=== PATIENT | female | born 1955 | race Hispanic/Latino ===

== ENCOUNTER → 2024-07-13 | Outpatient (CLI) | payer OTHER, MEDICARE | END | disposition home or self-care (01) | LOC: RAH 13:06 | PROVIDERS: ATTEND Student in an Organized Health Care Education/Training Program | DX: N28.1 Cyst of kidney, acquired (principal); N32.89 Other specified disorders of bladder; M47.815 Spondylosis without myelopathy or radiculopathy, thoracolumbar region; I70.90 Unspecified atherosclerosis; R10.9 Unspecified abdominal pain | CPT/HCPCS: 74176 ==

== ENCOUNTER 2024-11-08 12:43 | Emergency (ER) | payer OTHER, MEDICARE ==
[~2024-11-08] VITALS: Ht 157.5 cm; Wt 82.1 kg
--- NOTE | 2024-11-08 14:03 | HMCIMG ---
CHEST 1VW REASON: cp COMPARISON: None. FINDINGS: Single view of the chest was obtained. Lungs are clear. Heart size is normal. There is no pulmonary vascular congestion. Mediastinum and bony thorax appear unremarkable. IMPRESSION: 1. Normal single view chest x-ray.
--- NOTE | 2024-11-08 14:09 | ERN ---
General Chief Complaint: Headache Stated Complaint: HEADACHE Time Seen by MD: 12:45 Source: patient History of Present Illness Initial Comments Patient is a 69-year-old female coming in to be evaluated for headache. Patient states he was seen at another hospital with a diagnosed with elevated blood pressure was given it medication to control blood pressure. She believes she t hought her blood pressure was high so she decided to come in to be evaluated. She describes the headache is pressure-like and present in the maxillofacial area as well as the bilateral trapezius muscles. Allergies: Coded Allergies: levofloxacin (Unverified Allergy, Unknown, 11/08/24) Past Medical History Past Medical History: Anxiety, Depression, Diabetes-Type II, High Cholesterol, Hypertension Past Surgical History: Surgical History Other: X4 FOOT, KNEE, HERNIA REPAIR ROS Dictation CONSTITUTIONAL: No chills, no fever, no weakness, no diaphoresis, no malaise. HEAD/FACE: No signs of trauma. EENT: No eye pain, no blurred vision, no tearing, no double vision, no ear pain, no ear discharge, no nose pain, no nasal congestion, no throat pain, no throat swelling, no mouth pain. RESPIRATORY: No cough, no orthopnea, no SOB, no stridor, no wheezing. CARDIOVASCULAR: No chest pain, no edema, no palpitations, no syncope. GASTROINTESTINAL/ABDOMINAL: No abdominal pain, no constipation, no diarrhea, no nausea, no vomiting. GENITOURINARY: No abnormal discharge, no dysuria, no frequent urination, no hematuria. No complaints of pain in the genitals. MUSCULOSKELETAL: No back pain, no gout, no joint pain, no joint swelling, no muscle pain, no muscle stiffness, no neck pain. INTEGUMENTARY: No change in color, no change in hair/nails, no dryness, no lesion, no lumps, no rash. NEUROLOGICAL/PSYCH: No anxiety, not depressed, no emotional problem, no headache, no numbness, no pre-existing deficit, no history of seizures, no tremors, no weakness. HEMATOLOGIC/LYMPHATIC: Not anemic, no history of blood clots, no apparent bleeding, no bruising, glands not swollen. All Systems Negative, Except as Noted. Physical Exam Physical Exam Dictation VITAL SIGNS: Reviewed. GENERAL APPEARANCE: Alert, oriented x3, no acute distress, obese. HEAD AND FACE: Non-traumatic. EYES: PERRL, pink conjunctivas, eyelid no trauma, anterior chamber clear. EARS: Pinnas intact and no signs of trauma or erythema. Ear canals clear and no discharge. TMs no erythema. NOSE: No discharge, no bleeding. OROPHARYNX: Mouth normal, teeth no caries, tongue pink. Pharynx clear, no erythema. Tonsils no exudates, no abscesses noted. Mucous membrane moist. NECK: Supple, non-tender, no thyromegaly, no masses, no JVD, no bruits. BREAST: Deferred. CHEST: No tenderness, no crepitus, no paradoxical movement, no retractions. LUNGS: Clear, well-ventilated, symmetric, no rales, no wheezing, no rhonchi, no stridor, good breath sounds bilaterally. HEART: Regular rate, regular rhythm, no murmur, no gallops. VASCULAR: No peripheral edema. ABDOMEN: Soft, positive bowel sounds, nondistended, no guarding, nontender, no rebound, no masses no hepatomegaly, no splenomegaly, no Shelby's sign, no hernias. RECTAL: Deferred. GENITAL: Deferred. NEUROLOGICAL: Normal speech, gross motor function intact, gross sensory function intact. MUSCULOSKELETAL: Neck nontender, full range of motion, back nontender, full range of motion. EXTREMITIES: Nontender, full range of motion. SKIN: Color pink, dry, no turgor, no rash, no lacerations, no abrasions, no contusions. LYMPHATICS: Deferred. Results Laboratory and Microbiology Lab and Micro Result Laboratory Tests Test 11/08/24 12:50 11/08/24 13:38 11/08/24 14:05 Influenza Type A Antigen Negative For Type A Influenza Type B Antigen Negative For Type B SARS-CoV-2, RNA, NAAT NEGATIVE SARS CoV-2 Group A Streptococcus Rapid negative (NEGATIVE) White Blood Count 9.2 K/uL (4.8-10.8) Red Blood Count 4.10 MIL/uL (4.00-5.50) Hemoglobin 12.1 g/dL (12.0-16.0) Hematocrit 38.9 % (36-48) Mean Corpuscular Volume 94.9 fL (79-99) Mean Corpuscular Hemoglobin 29.5 pg (27.0-33.0) Mean Corpuscular Hemoglobin Concent 31.1 g/dL (32.0-36.0) L Red Cell Distribution Width 13.5 % (11.0-15.5) Platelet Count 240 K/uL (130-400) Mean Platelet Volume 10.2 fL (7.5-10.5) Immature Granulocyte % (Auto) 0.4 % (0-1) Neutrophils (%) (Auto) 50.7 % (40.0-77.0) Lymphocytes (%) (Auto) 39.1 % (21.0-51.0) Monocytes (%) (Auto) 6.4 % (3.0-13.0) Eosinophils (%) (Auto) 2.7 % (0.0-8.0) Basophils (%) (Auto) 0.7 % (0.0-5.0) Neutrophils # (Auto) 4.6 K/uL (1.8-7.7) Lymphocytes # (Auto) 3.6 K/uL (1.0-4.8) Monocytes # (Auto) 0.6 K/uL (0.1-1.0) Eosinophils # (Auto) 0.25 K/uL (0.00-0.70) Basophils # (Auto) 0.06 K/uL (0.00-0.20) Absolute Immature Granulocyte (auto 0.04 K/uL (0-1) Nucleated Red Blood Cells 0.0 % (0.0-0.19) Prothrombin Time 10.1 SEC (9.6-11.6) Prothromb Time International Ratio <= 0.93 (0.85-1.15) Sodium Level 142 mmol/L (136-145) Potassium Level 4.4 mmol/L (3.5-5.1) Chloride Level 105 mmol/L (101-111) Carbon Dioxide Level 29 mmol/L (21-32) Blood Urea Nitrogen 31 mg/dL (7-18) H Creatinine 1.1 mg/dL (0.5-1.0) H Glomerular Filtration Rate Calc 55 mL/min (>90) Random Glucose 90 mg/dL (70-105) Total Calcium 9.3 mg/dL (8.5-10.1) Magnesium Level 2.00 mg/dL (1.80-2.40) Total Creatine Kinase 52 U/L (21-232) Troponin I High Sensitivity 9 ng/L (4-50) B-Type Natriuretic Peptide 50 pg/mL (0-100) Labs Reviewed?: Yes EKG/XRAY/US/CT/MRI EKG Comment 11/08/2024 time 12:59 p.m. Ventricular rate 55 Sinus rhythm [place] [address] wave elevation or depression MDM MDM: DIFFERENTIAL DIAGNOSIS: TENSION HEADACHE, UTI, COVID, FLU, SINUSITIS PATIENT IS A 69-YEAR-OLD FEMALE COMING IN TO BE EVALUATED FOR A HEADACHE. PATIENT STATES THAT SHE HAS BEEN EVALUATED AT OTHER EMERGENCY ROOMS IN [facility] AND EVERYTHING HAS BEEN NORMAL. ON PHYSICAL EXAM THERE IS A RIGHT TYMPANIC MEMBRANE ERYTHEMA SINUS PRESSURE MAXILLARY AND ETHMOID SINUSES. CONSISTENT WITH SINUSITIS. PATIENT WAS HYDRATED WITH IV FLUIDS GIVEN THE HEADACHE COCKTAIL STATES HE FEELS MUCH BETTER. HE WILL BE DISCHARGED IN STABLE CONDITION WITH ORAL ANTIBIOTICS WELL NASAL STEROIDS. I ADVISED HER APPROPRIATE FOLLOW UP WITH PCP IN 1-2 DAYS AND POSSIBLE NEUROLOGY FOR CHRONIC HEADACHES. ED Course Orders Procedure Category Date Status Time Cbc With Differential LAB 11/08/24 Complete 12:49 Prothrombin Time With LAB 11/08/24 Complete INR 12:49 B-Type Natriuretic LAB 11/08/24 Complete Peptide 12:49 Chest 1vw RAD 11/08/24 Resulted 12:49 12 Lead Ekg Tracing- EKG 11/08/24 Logged Technical 12:49 0.9%Nacl 1000ml (Ns PHA 11/08/24 Complete 1000ml) 13:00 Magnesium LAB 11/08/24 Complete 12:49 Creatine Kinase, Total LAB 11/08/24 Complete 12:49 Troponin I High LAB 11/08/24 Complete Sensitivity 12:49 Urinalysis Profile LAB 11/08/24 Logged 12:49 Basic Metabolic Panel LAB 11/08/24 Complete 12:49 Prochlorperazine PHA 11/08/24 Complete 10mg/2ml Inj 13:00 Diphenhydramine Hcl PHA 11/08/24 Complete (Benadryl Inj) 13:00 Covid Rna Naat LAB 11/08/24 Complete 13:47 Influenza Type A & B, LAB 11/08/24 Complete Rapid 13:47 Rapid (Group A Strep) LAB 11/08/24 Complete 13:56 Current Medications Medications (Trade) Dose Ordered Sig/Yahaira Route PRN Reason Start Time Stop Time Status Last Admin Dose Admin Diphenhydramine HCl (BENAdryl INJ) 25 mg ONCE ONCE IV 11/08/24 13:00 11/08/24 13:01 DC 11/08/24 16:20 Prochlorperazine Edisylate (Compazine 10mg/ 2ml Inj) 10 mg ONCE ONCE IV 11/08/24 13:00 11/08/24 13:01 DC 11/08/24 16:20 Sodium Chloride 1,000 ml @ 0 mls/hr ONCE ONCE IV 11/08/24 13:00 11/08/24 13:01 DC 11/08/24 16:20 Vital Signs Date Time Temp Pulse Resp B/P (MAP) Pulse Ox O2 Delivery O2 Flow Rate FiO2 11/08/24 12:44 98.1 50 16 172/62 98 Room Air* 0 21 11/08/24 12:44 98.1 50 16 172/62 98 0 DX & DISP Disposition: Discharge Departure Impression: Primary Impression: Tension headache Additional Impression: Sinusitis Condition: Stable Additional Instructions: FOLLOW-UP WITH PRIMARY CARE PROVIDER IN 1 TO 2 DAYS. TAKE MEDICATIONS DIRECTED HERE IN THE EMERGENCY ROOM. OKAY TO CONTINUE HOME MEDICATIONS UNLESS OTHERWISE DISCUSSED DURING YOUR VISIT IN THE EMERGENCY ROOM TODAY. RETURN TO YOUR NEAREST EMERGENCY ROOM IF SYMPTOMS WORSEN OR IF THERE IS NO IMPROVEMENT. CALL 911 IF YOU NEED IMMEDIATE ASSISTANCE. TAKE TYLENOL [id number] NEEDED AND IF NO CONTRAINDICATIONS ARE PRESENT. INCREASE ORAL HYDRATION. A WOUND CULTURE OR URINE CULTURE WAS ORDERED HERE IN THE EMERGENCY ROOM DEPARTMENT PLEASE FOLLOW-UP WITH PRIMARY CARE PROVIDER AND ADVISE THEM TO GET REPEAT PORTS FROM OUR FACILITY. IF YOU HAD ANY QUIRINO WRAP/SPLINTS THAT WERE APPLIED HERE, PLEASE DO NOT REMOVE THEM UNTIL YOU SEE YOUR PRIMARY CARE OR SPECIALTY. REFERRALS: Referrals: DEEPAK CASTREJON M.D. (PCP) MARIE OCAMPO MD, FRANK R III MD Time of Disposition: 16:34 KATHIE GLEASON MD Nov 08, 2024 14:09
[2024-11-08 14:11] LABS: SARS-CoV-2, RNA, NAAT NEGATIVE SARS CoV-2 (NEGATIVE)
[2024-11-08 14:14] LABS: BASOPHILS # (AUTO) 0.06 K/uL (0.00-0.20); BASOPHILS % (AUTO) 0.7 % (0.0-5.0); EOSINOPHILS # (AUTO) 0.25 K/uL (0.00-0.70); EOSINOPHILS % (AUTO) 2.7 % (0.0-8.0); HEMATOCRIT 38.9 % (36-48); IMMATURE GRANULOCYTE ABSOLUTE 0.04 K/uL (0-1); LYMPHOCYTES # (AUTO) 3.6 K/uL (1.0-4.8); LYMPHOCYTES % (AUTO) 39.1 % (21.0-51.0); MEAN CORPUSCULAR HEMOGLOBIN 29.5 pg (27.0-33.0); MEAN CORPUSCULAR HGB CONC 31.1 g/dL (32.0-36.0); MEAN CORPUSCULAR VOLUME 94.9 fL (79-99); MONOCYTES # (AUTO) 0.6 K/uL (0.1-1.0); MONOCYTES % (AUTO) 6.4 % (3.0-13.0); NEUTROPHILS # (AUTO) 4.6 K/uL (1.8-7.7); NEUTROPHILS % (AUTO) 50.7 % (40.0-77.0); PLATELET COUNT (AUTO) 240 K/uL (130-400); RED CELL DISTRIBUTION WIDTH 13.5 % (11.0-15.5); WHITE BLOOD COUNT (AUTO) 9.2 K/uL (4.8-10.8)
[2024-11-08 14:16] LABS: INFLUENZA TYPE A Negative For Type A (NEGATIVE); INFLUENZA TYPE B Negative For Type B (NEGATIVE)
[2024-11-08 14:38] LABS: INR <= 0.93 (0.85-1.15); PROTHROMBIN TIME 10.1 SEC (9.6-11.6)
[2024-11-08 14:42] LABS: B-TYPE NATRIURETIC PEPTIDE 50 pg/mL (0-100)
[2024-11-08 14:58] LABS: CREATININE 1.1 mg/dL (0.5-1.0); POTASSIUM 4.4 mmol/L (3.5-5.1)
[2024-11-08] MEDS: DiphenhydrAMINE HCL 50 MG/ML VIAL IV ONE (16:20)
[2024-11-08] MEDS: PROCHLORPERAZINE 10MG/2ML INJ IV ONE (16:20)
[2024-11-08] MEDS: 0.9%NACL 1000ML 1,000 ML IV ONE (16:20)
[2024-11-08] MEDS ORDERED: FLUT16H NS (16:36)
[2024-11-08] MEDS ORDERED: AMOX1TAB16 PO (16:36)
[2024-11-08] MEDS ORDERED: LORA10TA7 PO (16:36)
[2024-11-08 16:50] LABS: ADD UA MICROSCOPIC YES; APPEARANCE,URINE CLEAR (CLEAR); BILIRUBIN,URINE NEGATIVE (NEGATIVE); COLOR,URINE LIGHT-YELLOW (YELLOW); GLUCOSE, URINE (UA) NEGATIVE (NEGATIVE); KETONES,URINE NEGATIVE (NEGATIVE); LEUKOCYTE ESTERASE ,URINE NEGATIVE Leu/uL (NEGATIVE); NITRATE,URINE NEGATIVE (NEGATIVE); PROTEIN,URINE 50 mg/dL (NEGATIVE); UROBILINOGEN,URINE 0.2 mg/dL (0.2-1.0)
[2024-11-08 16:52] LABS: MUCUS,URINE RARE LPF (None Seen); RBC,URINE 0-1 /HPF (0-1); SQUAMOUS EPITHELIAL CELL,UR RARE /HPF (0-2); WBC,URINE 0-1 /HPF (0-1)
[2024-11-08 17:21] VITALS: BP 168/64; PULSE 89; RESP 18; TEMP 98.6; O2SAT 98
--- NOTE | 2024-11-09 05:23 | EKG ---
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
== END 2024-11-08 17:21 | disposition home or self-care (01) ==
LOC: EDH 12:43
DX: G44.209 Tension-type headache, unspecified, not intractable (principal); E11.9 Type 2 diabetes mellitus without complications; E78.00 Pure hypercholesterolemia, unspecified; I10 Essential (primary) hypertension; J32.9 Chronic sinusitis, unspecified; Z88.1 Allergy status to other antibiotic agents; Z98.890 Other specified postprocedural states; Z20.822 Contact with and (suspected) exposure to COVID-19
CPT/HCPCS: 99285; 96374; 71045; 87635; 96375; 82550; 83735; 84484; 80048; 83880; 85025; 85610; 87880; 87804 ×2; 81001; 36415; 93005; J1200; J7030; J0780

== ENCOUNTER → 2025-05-31 | Outpatient (CLI) | payer OTHER ==
[~2025-05-31] MED LIST: AMOX1TAB16 PO; FLUT16H NS; LORA10TA7 PO
--- NOTE | 2025-06-01 10:19 | HMCIMG ---
EXAM: CT Cardiac calcium scoring. CLINICAL HISTORY: Screening. TECHNIQUE: Thin collimated axial CT cardiac images were obtained. A CT scan is done according to ALARA (As Low As Reasonably Achievable). CONTRAST: None. COMPARISON: None provided. FINDINGS: Calcium Score: VESSEL Number of lesions Volume mm3 Equi. Mass/mg Calcium score LM 0 0 - 0 LAD 3 10.9 - 16.7 LCX 0 0 - 0 RCA 0 0 - 0 Total 3 10.9 - 16.7 IMPRESSION: The total calcium score is 16.7. This corresponds to the 65th percentile. /[place]
== END | disposition home or self-care (01) ==
LOC: RAH 10:06
PROVIDERS: ATTEND Internal Medicine Cardiovascular Disease
DX: Z13.6 Encounter for screening for cardiovascular disorders (principal)
CPT/HCPCS: 75571

== ENCOUNTER → 2025-10-11 | Outpatient (CLI) | payer OTHER, MEDICAID ==
--- NOTE | 2025-10-11 19:46 | HMCIMG ---
EXAM: CT scan of the head without contrast CLINICAL HISTORY: Other amnesia. COMPARISON: No comparison study provided. RADIATION DOSE: Total exam DLP: 911 mGy???cmFINDINGS Brain Parenchyma: Age-appropriate neuroparenchymal volume loss with widening of the sulci, prominence of the basal cisterns, and ex vacuo prominence of the ventricular system; hypodense areas in the right basifrontal region involving guzmán and white matter with mass effect causing effacement of adjacent sulcal spaces. Ventricles / CSF Spaces: Ventricular prominence compatible with ex vacuo dilation; no hydrocephalus. Mass Effect: Effacement of the right basifrontal sulci; no midline shift or herniation. Sella / Parasellar Region: Partial empty sella turcica. Bones / Skull: Hyperostosis frontalis interna. Paranasal Sinuses / Mastoids: Diffuse mucosal thickening of the right frontal and left posterior ethmoid sinuses; remainder of paranasal sinuses and mastoid air cells clear. Vasculature (Non-contrast): Atheromatous calcifications of the intracranial arteries. 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 * Age-related cerebral atrophy with ex vacuo ventricular prominence. * Right frontal and left posterior ethmoid sinus disease with mucosal thickening. /[place]
== END | disposition home or self-care (01) ==
LOC: RAH 13:50
PROVIDERS: ATTEND Internal Medicine
DX: I67.2 Cerebral atherosclerosis (principal); M85.2 Hyperostosis of skull; G31.89 Other specified degenerative diseases of nervous system; R41.3 Other amnesia
CPT/HCPCS: 70450